=== PATIENT | female | born 2000 | race African-American/Black ===

== ENCOUNTER 2024-01-29 21:55 | Emergency (ER) | payer OTHER ==
[~2024-01-29] VITALS: Ht 167.6 cm; Wt 80.7 kg
[2024-01-29 22:35] LABS: BILIRUBIN Negative (Negative); BLOOD Negative (Negative); CLARITY Clear (Clear); COLOR Yellow (Yellow); GLUCOSE Negative (Negative); KETONE Negative (Negative); LEUKO ESTERASE Negative (Negative); NITRITE Negative (Negative); PH 7.5 (4.5-8.0); SPECIFIC GRAVITY 1.015 (1.001-1.030)
[2024-01-29] MEDS ORDERED: IOHEXOL 300 MG/ML 100 ML VIAL IV ONE (22:35)
[2024-01-29] MEDS ORDERED: SODIUM CHLORIDE 0.9% 1,000 ML IV ONE (22:35)
[2024-01-29 22:41] LABS: WBC 0-2 wbc/hpf (0-5)
[2024-01-29 22:54] LABS: BASO % 0.3 % (0.0-1.0); EOS # 0.4 10*3/uL (0.0-0.4); EOS % 3.6 % (1.0-4.0); HEMATOCRIT 35.6 % (37.0-47.0); LYMPH # 2.8 10*3/uL (1.3-4.4); LYMPH % 27.7 % (27.0-41.0); MEAN CELL VOLUME 90.4 fl (81.0-99.0); MEAN CORPUSCULAR HGB 28.9 pg (27.0-31.0); MEAN PLATELET VOLUME 9.6 fl (9.6-12.3); MONO # 0.9 10*3/uL (0.1-1.0); MONO % 8.4 % (3.0-9.0); NEUT # 6.1 10*3/uL (2.3-7.9); NEUT % 59.8 % (47.0-73.0); PLATELET COUNT AUTOMATED 305 10*3/uL (130-400); RED BLOOD COUNT 3.94 10*6/uL (4.10-5.10); RED CELL DISTRI WIDTH 12.4 % (0-14.5); WHITE BLOOD COUNT 10.1 10*3/uL (4.8-10.8)
[2024-01-29 23:18] LABS: ALKALINE PHOSPHATASE 149 U/L (46-116); BUN 12 mg/dl (9-23); CHLORIDE 104 mmol/L (98-107); LIPASE 55 U/L (12-53); POTASSIUM 3.3 mmol/L (3.4-5.1); SGPT/ALT 80 U/L (5-49); TOTAL PROTEIN 7.6 gm/dL (6.0-8.0)
[2024-01-30] MEDS ORDERED: Ketorolac Tromethamine 30 MG/ML VIAL IV ONE (02:20)
[2024-01-30] MEDS ORDERED: Ondansetron Hydrochloride 4 MG/2 ML VIAL IV ONE (02:20)
[2024-01-30] MEDS ORDERED: ACETAMINOPHEN 325 MG TAB PO ONE (02:25)
[2024-01-30] MEDS ORDERED: [UNRECOGNIZED DRUG - REMARK] (07:16)
[2024-01-30] MEDS ORDERED: POTASSIUM CHLO20 ME3 PO (07:29)
== END 2024-01-30 07:30 | disposition home or self-care (01) ==
LOC: ED 21:55
PROVIDERS: Internal Medicine
DX: K80.50 Calculus of bile duct without cholangitis or cholecystitis without obstruction (principal); E87.6 Hypokalemia; R74.01 Elevation of levels of liver transaminase levels; K21.9 Gastro-esophageal reflux disease without esophagitis